=== PATIENT | female | born 1940 | race Caucasian/White ===

== ENCOUNTER 2016-07-25 14:29 | Inpatient (IN) | payer MEDICARE, OTHER ==
[~2016-07-25] VITALS: Ht 160 cm; Wt 70.9 kg
[~2016-07-25 14:29] MED LIST: ALBU8HFA4 IH; AMIO200T44 PO; APIX5TAB PO; ASPI81 PO; CARV6 PO; CHOL200016 PO; DIPH25 PO; SIMV-261 PO; SITA25 PO
[2016-07-25] MEDS ORDERED: [UNRECOGNIZED DRUG - OTHER] PO (14:56)
[2016-07-25] MEDS ORDERED: DOCU250C91 PO (14:56)
[2016-07-25 15:20] LABS: GLUCOSE,POINT OF CARE 293 MG/DL (70-110)
[2016-07-25] MEDS ORDERED: IPRATROPIUM BROMIDE 0.5 MG/2.5 ML NEB SOLUTION NEB ONE (16:30)
[2016-07-25] MEDS ORDERED: ALBUTEROL SULFATE 5 MG/ML 20 ML NEB SOLN [BULK] NEB ONE (16:30)
[2016-07-25 16:33] LABS: BASOPHILS % (AUTO) 0.5 % (0.0-2.0); EOSINOPHILS % (AUTO) 0.6 % (1.0-6.0); HEMATOCRIT 35.7 % (36-46); HEMOGLOBIN 11.2 g/dL (12.0-16.0); LYMPHOCYTES # (AUTO) 1.2 K/uL (1.0-4.8); MEAN CORPUSCULAR HEMOGLOBIN 28.8 pg (26.0-34.0); MEAN CORPUSCULAR HGB CONC 31.5 G/dL (31.0-37.0); MEAN CORPUSCULAR VOLUME 92 fL (80-100); MONOCYTES # (AUTO) 0.9 K/uL (0.1-1.0); MONOCYTES % (AUTO) 10.5 % (2.0-9.0); NEUTROPHILS # (AUTO) 6.8 K/uL (1.8-7.7); NEUTROPHILS % (AUTO) 75.4 % (40.0-70.0); PLATELET COUNT (AUTO) 174 K/uL (150-450); RED BLOOD CELL COUNT(AUTO) 3.89 MIL/uL (4.00-5.20); RED CELL DISTRIBUTION WIDTH 17.5 % (11.5-14.5)
[2016-07-25 16:42] LABS: ANION GAP 7 mmol/L (8-16); CALCIUM, TOTAL 8.5 mg/dL (8.8-10.5); CARBON DIOXIDE 32 mmol/L (22-29); CHLORIDE 93 mmol/L (98-107); CREATININE 5.25 mg/dL (0.60-1.30); GLOMERULAR FILTR. RATE CALC 8 mL/min (>60); POTASSIUM 4.4 mmol/L (3.5-5.1); SODIUM SERUM 132 mmol/L (136-145); UREA NITROGEN, BLOOD 34 mg/dL (7-18)
[2016-07-25 16:44] LABS: INR 1.2 (0.9-1.1); PROTHROMBIN TIME 12.3 SEC (9.4-11.6)
[2016-07-25 16:49] LABS: ALANINE AMINOTRANSFERASE 20 U/L (12-78); ALBUMIN 2.9 g/dL (3.4-5.0); ASPARTATE AMINOTRANSFERASE 13 U/L (15-37); BILIRUBIN,TOTAL 0.4 mg/dL (0.1-1.0); CREATINE KINASE, TOTAL 19 U/L (26-192); TOTAL PROTEIN, SERUM 7.3 g/dL (6.4-8.2)
[2016-07-25 17:54] LABS: RBC MORPHOLOGY COMMENT ABNORMAL RBC MORPH
[2016-07-25] MEDS ORDERED: 0.9% SODIUM CHLORIDE 10 ML SYRINGE IVP PRN (18:00)
[2016-07-25] MEDS ORDERED: ACETAMINOPHEN 325 MG TABLET PO PRN ×2 (18:00→20:45)
[2016-07-25] MEDS ORDERED: ONDANSETRON HCL 4 MG/2 ML VIAL IVP PRN (18:00)
[2016-07-25 18:05] LABS: INFLUENZA TYPE B NEGATIVE FOR TYPE B (NEGATIVE)
[2016-07-25 18:41] LABS: ERYTHROCYTE SEDIMENTATION RATE 20 MM/HR (0-20)
[2016-07-25] MEDS ORDERED: ALBUTEROL SULFATE 2.5 MG/0.5 ML NEB SOLUTION NEB PRN (20:45)
[2016-07-25] MEDS ORDERED: BISACODYL 10 MG RECTAL RECTAL SUPPOSITORY PR PRN (20:45)
[2016-07-25] MEDS ORDERED: DEXTROSE 50%-WATER 25 GM/50 ML SYRINGE IVP PRN (20:45)
[2016-07-25 21:30] VITALS: BP 133/63
[2016-07-25] MEDS: DOCUSATE SODIUM 100 MG CAPSULE PO SCH (22:12)
[2016-07-25] MEDS: AMIODARONE HCL 200 MG TABLET PO SCH (22:12)
[2016-07-25] MEDS: CARVEDILOL 6.25 MG TABLET PO SCH (22:12)
[2016-07-25] MEDS: SIMVASTATIN 20 MG TABLET PO SCH (22:12)
[2016-07-25] MEDS: HEPARIN SODIUM,PORCINE 5,000 UNITS/ML VIAL SQ SCH (22:12)
[2016-07-25 22:25] LABS: ABG BASE EXCESS 4.1 mmol/L (-2.0-3.0); ABG HCO3 26.7 mmol/L (22.0-26.0); ABG OXYHEMOGLOBIN 77.7 % (94.0-100.0); ABG PCO2 57 mmHg (35-45); ABG PH 7.336 (7.35-7.450); TEMPERATURE, FAHRENHEIT, BG 98.6 FAHREN (96.0-98.6)
[2016-07-25] MEDS: INSULIN ASPART 100 UNITS/ML SQ PRN (22:25)
[2016-07-25 22:26] LABS: ALLEN TEST, BLOOD GAS Positive
[2016-07-25 23:22] VITALS: BP 125/49
[2016-07-26] MEDS ORDERED: 0.9% SODIUM CHLORIDE 5 ML NEB SOLUTION NEB ONE (02:25)
[2016-07-26 04:16] VITALS: BP 145/60
[2016-07-26] MEDS: INSULIN ASPART 100 UNITS/ML SQ PRN (06:03)
[2016-07-26 07:04] VITALS: BP 157/69
[2016-07-26 07:12] LABS: GLUCOSE,POINT OF CARE 187 MG/DL (70-110)
[2016-07-26 07:12] LABS: GLUCOSE COMMENT 1 Received Meds; GLUCOSE,POINT OF CARE 317 MG/DL (70-110)
[2016-07-26] MEDS ORDERED: SitaGLIPtin PHOSPHATE 50 MG TABLET PO SCH (10:15)
[2016-07-26] MEDS ORDERED: MANNITOL 25%-12.5 GM/50 ML VIAL IVP PRN (11:00)
[2016-07-26] MEDS ORDERED: ALBUMIN HUMAN 25%-12.5GM/50ML IV BOTTLE IV PRN (11:00)
[2016-07-26 11:29] VITALS: BP 162/73
[2016-07-26] MEDS: VITAMIN B COMP/VIT C/FOLIC ACID CAPSULE PO SCH (13:03)
[2016-07-26] MEDS: SitaGLIPtin PHOSPHATE 25 MG TABLET PO SCH (13:03)
[2016-07-26] MEDS: ASPIRIN 81 MG CHEWABLE TABLET PO SCH (13:03)
[2016-07-26] MEDS: CARVEDILOL 6.25 MG TABLET PO SCH ×2 (13:03→20:44)
[2016-07-26] MEDS: DOCUSATE SODIUM 100 MG CAPSULE PO SCH ×2 (13:04→20:44)
[2016-07-26] MEDS: PANTOPRAZOLE SODIUM 40 MG DR TABLET PO SCH (13:04)
[2016-07-26] MEDS: AMIODARONE HCL 200 MG TABLET PO SCH ×2 (13:04→20:44)
[2016-07-26] MEDS: HEPARIN SODIUM,PORCINE 5,000 UNITS/ML VIAL SQ SCH ×2 (13:04→20:45)
[2016-07-26] MEDS ORDERED: DIGOXIN 250 MCG/ML 2 ML AMP IVP ONE ×2 (13:30→15:45)
[2016-07-26 15:15] VITALS: BP 120/88
[2016-07-26] MEDS ORDERED: AMIODARONE HCL 150 MG in DEXTROSE 5%-WATER 97 ML IV ONE (18:50)
[2016-07-26] MEDS ORDERED: AMIODARONE HCL 360 MG in DEXTROSE 5%-WATER 242.8 ML IV ONE (19:00)
[2016-07-26 19:05] VITALS: BP 111/63
[2016-07-26] MEDS: SIMVASTATIN 20 MG TABLET PO SCH (20:44)
[2016-07-26 21:00] VITALS: BP 117/60
[2016-07-27] VITALS (7 sets, daily range): BP systolic 129–168; BP diastolic 47–66
[2016-07-27] MEDS ORDERED: AMIODARONE HCL 540 MG in DEXTROSE 5%-WATER 239.2 ML IV ONE (01:00)
[2016-07-27 06:46] LABS: EOSINOPHILS % (AUTO) 0.1 % (1.0-6.0); HEMATOCRIT 36.5 % (36-46); HEMOGLOBIN 11.1 g/dL (12.0-16.0); LYMPHOCYTES # (AUTO) 0.8 K/uL (1.0-4.8); LYMPHOCYTES % (AUTO) 8.5 % (22.0-44.0); MEAN CORPUSCULAR HEMOGLOBIN 28.5 pg (26.0-34.0); MEAN CORPUSCULAR HGB CONC 30.5 G/dL (31.0-37.0); MEAN CORPUSCULAR VOLUME 94 fL (80-100); MONOCYTES # (AUTO) 1.2 K/uL (0.1-1.0); MONOCYTES % (AUTO) 12.5 % (2.0-9.0); NEUTROPHILS # (AUTO) 7.7 K/uL (1.8-7.7); NEUTROPHILS % (AUTO) 78.9 % (40.0-70.0); PLATELET COUNT (AUTO) 174 K/uL (150-450); RED CELL DISTRIBUTION WIDTH 17.2 % (11.5-14.5); WHITE BLOOD COUNT (AUTO) 9.8 K/uL (4.5-11.0)
[2016-07-27 06:53] LABS: CALCIUM, TOTAL 8.6 mg/dL (8.8-10.5); CREATININE 4.55 mg/dL (0.60-1.30); POTASSIUM 5.1 mmol/L (3.5-5.1)
[2016-07-27 07:04] LABS: RBC MORPHOLOGY COMMENT ABNORMAL RBC MORPH
[2016-07-27] MEDS: CARVEDILOL 6.25 MG TABLET PO SCH ×2 (08:49→20:55)
[2016-07-27] MEDS: PANTOPRAZOLE SODIUM 40 MG DR TABLET PO SCH (08:49)
[2016-07-27] MEDS: DOCUSATE SODIUM 100 MG CAPSULE PO SCH ×2 (08:49→20:55)
[2016-07-27] MEDS: ASPIRIN 81 MG CHEWABLE TABLET PO SCH (08:49)
[2016-07-27] MEDS: SitaGLIPtin PHOSPHATE 25 MG TABLET PO SCH (08:49)
[2016-07-27] MEDS: VITAMIN B COMP/VIT C/FOLIC ACID CAPSULE PO SCH (08:49)
[2016-07-27] MEDS: AMIODARONE HCL 200 MG TABLET PO SCH ×2 (08:50→20:55)
[2016-07-27] MEDS: HEPARIN SODIUM,PORCINE 5,000 UNITS/ML VIAL SQ SCH ×2 (08:50→20:55)
[2016-07-27 11:48] LABS: TOTAL PROTEIN, SERUM 7.2 g/dL (6.4-8.2)
[2016-07-27] MEDS ORDERED: AMIODARONE HCL 750 MG in DEXTROSE 5%-WATER 485 ML IV SCH (19:00)
[2016-07-27] MEDS ORDERED: CARV12 PO (19:16)
[2016-07-27] MEDS ORDERED: SITA50 PO (19:16)
[2016-07-27] MEDS: SIMVASTATIN 20 MG TABLET PO SCH (20:55)
[2016-07-28 04:19] VITALS: BP 145/85
[2016-07-28] MEDS ORDERED: SODIUM CHLORIDE 0.9% 1,000 ML IV ONE ×2 (06:42→06:43)
[2016-07-28] MEDS ORDERED: MANNITOL 25%-12.5 GM/50 ML VIAL IVP PRN (07:00)
[2016-07-28] MEDS ORDERED: ALBUMIN HUMAN 25%-12.5GM/50ML IV BOTTLE IV PRN (07:00)
[2016-07-28 07:08] LABS: CALCIUM, TOTAL 8.7 mg/dL (8.8-10.5); CREATININE 5.95 mg/dL (0.60-1.30); MAGNESIUM 2.1 mg/dL (1.80-2.40); PHOSPHORUS 3.9 mg/dL (2.5-4.9); POTASSIUM 4.9 mmol/L (3.5-5.1)
[2016-07-28 07:41] VITALS: BP 158/63
[2016-07-28 08:10] LABS: BASOPHILS # (AUTO) 0.02 K/uL (0.00-0.20); BASOPHILS % (AUTO) 0.3 % (0.0-2.0); EOSINOPHILS # (AUTO) 0.04 K/uL (0.00-0.70); EOSINOPHILS % (AUTO) 0.54 % (1.0-6.0); HEMATOCRIT 37.1 % (36-46); HEMOGLOBIN 11.5 g/dL (12.0-16.0); LYMPHOCYTES # (AUTO) 0.9 K/uL (1.0-4.8); LYMPHOCYTES % (AUTO) 13.7 % (22.0-44.0); MEAN CORPUSCULAR HEMOGLOBIN 28.3 pg (26.0-34.0); MEAN CORPUSCULAR HGB CONC 30.9 G/dL (31.0-37.0); MEAN CORPUSCULAR VOLUME 91 fL (80-100); MONOCYTES # (AUTO) 0.6 K/uL (0.1-1.0); MONOCYTES % (AUTO) 8.2 % (2.0-9.0); NEUTROPHILS # (AUTO) 5.1 K/uL (1.8-7.7); NEUTROPHILS % (AUTO) 77.3 % (40.0-70.0); PLATELET COUNT (AUTO) 155 K/uL (150-450); RED BLOOD CELL COUNT(AUTO) 4.06 MIL/uL (4.00-5.20); RED CELL DISTRIBUTION WIDTH 17.2 % (11.5-14.5); WHITE BLOOD COUNT (AUTO) 6.6 K/uL (4.5-11.0)
[2016-07-28] MEDS ORDERED: DEXTROSE 50%-WATER 25 GM/50 ML SYRINGE IVP PRN (08:30)
[2016-07-28] MEDS: SitaGLIPtin PHOSPHATE 25 MG TABLET PO SCH ×2 (09:00→13:12)
[2016-07-28] MEDS: HEPARIN SODIUM,PORCINE 5,000 UNITS/ML VIAL SQ SCH ×3 (09:00→20:44)
[2016-07-28] MEDS: PANTOPRAZOLE SODIUM 40 MG DR TABLET PO SCH ×2 (09:00→13:14)
[2016-07-28] MEDS: VITAMIN B COMP/VIT C/FOLIC ACID CAPSULE PO SCH ×2 (09:00→13:12)
[2016-07-28] MEDS: AMIODARONE HCL 200 MG TABLET PO SCH ×3 (09:00→20:44)
[2016-07-28] MEDS: CARVEDILOL 6.25 MG TABLET PO SCH ×3 (09:00→20:43)
[2016-07-28] MEDS: INSULIN DETEMIR 100 UNITS/ML SQ SCH ×2 (09:00→20:51)
[2016-07-28] MEDS: DOCUSATE SODIUM 100 MG CAPSULE PO SCH ×2 (09:00→13:09)
[2016-07-28] MEDS: ASPIRIN 81 MG CHEWABLE TABLET PO SCH ×2 (09:00→13:14)
[2016-07-28] MEDS: SIMVASTATIN 20 MG TABLET PO SCH (13:14)
[2016-07-28 14:55] VITALS: BP 141/56
[2016-07-28] MEDS: INSULIN ASPART 100 UNITS/ML SQ PRN ×2 (15:43→17:50)
[2016-07-28 16:57] LABS: APPEARANCE,UNSPUN,BODY FLUID CLOUDY (CLEAR); COLOR,BODY FLUID RED (LT YELLOW)
[2016-07-28 17:00] LABS: OTHER CELLS,BODY FLUID 2
[2016-07-28 17:57] LABS: GLUCOSE,POINT OF CARE 190 MG/DL (70-110)
[2016-07-28 18:02] LABS: GLUCOSE,POINT OF CARE 254 MG/DL (70-110)
[2016-07-28 20:37] VITALS: BP 131/60
[2016-07-28 20:57] LABS: GLUCOSE,POINT OF CARE 334 MG/DL (70-110)
[2016-07-29 00:19] VITALS: BP 127/59
[2016-07-29 04:47] VITALS: BP 148/57
[2016-07-29 06:43] LABS: CALCIUM, TOTAL 8.5 mg/dL (8.8-10.5); CREATININE 4.47 mg/dL (0.60-1.30); POTASSIUM 4.1 mmol/L (3.5-5.1)
[2016-07-29 06:45] LABS: BASOPHILS # (AUTO) 0.01 K/uL (0.00-0.20); BASOPHILS % (AUTO) 0.3 % (0.0-2.0); EOSINOPHILS # (AUTO) 0.05 K/uL (0.00-0.70); EOSINOPHILS % (AUTO) 0.88 % (1.0-6.0); HEMATOCRIT 35.4 % (36-46); LYMPHOCYTES # (AUTO) 0.9 K/uL (1.0-4.8); LYMPHOCYTES % (AUTO) 16.5 % (22.0-44.0); MEAN CORPUSCULAR HEMOGLOBIN 28.6 pg (26.0-34.0); MEAN CORPUSCULAR HGB CONC 31.2 G/dL (31.0-37.0); MEAN CORPUSCULAR VOLUME 92 fL (80-100); MONOCYTES # (AUTO) 0.4 K/uL (0.1-1.0); MONOCYTES % (AUTO) 7.1 % (2.0-9.0); NEUTROPHILS # (AUTO) 4.2 K/uL (1.8-7.7); NEUTROPHILS % (AUTO) 75.2 % (40.0-70.0); PLATELET COUNT (AUTO) 167 K/uL (150-450); RED BLOOD CELL COUNT(AUTO) 3.86 MIL/uL (4.00-5.20); RED CELL DISTRIBUTION WIDTH 17.3 % (11.5-14.5); WHITE BLOOD COUNT (AUTO) 5.6 K/uL (4.5-11.0)
[2016-07-29 07:15] VITALS: BP 126/59
[2016-07-29] MEDS: SitaGLIPtin PHOSPHATE 25 MG TABLET PO SCH (08:20)
[2016-07-29] MEDS: ASPIRIN 81 MG CHEWABLE TABLET PO SCH (08:20)
[2016-07-29] MEDS: VITAMIN B COMP/VIT C/FOLIC ACID CAPSULE PO SCH (08:20)
[2016-07-29] MEDS: PANTOPRAZOLE SODIUM 40 MG DR TABLET PO SCH (08:20)
[2016-07-29] MEDS: DOCUSATE SODIUM 100 MG CAPSULE PO SCH ×2 (08:20→20:57)
[2016-07-29] MEDS: AMIODARONE HCL 200 MG TABLET PO SCH ×2 (08:20→20:57)
[2016-07-29] MEDS: CARVEDILOL 6.25 MG TABLET PO SCH ×2 (08:20→20:57)
[2016-07-29] MEDS: HEPARIN SODIUM,PORCINE 5,000 UNITS/ML VIAL SQ SCH ×2 (08:21→20:58)
[2016-07-29] MEDS: INSULIN DETEMIR 100 UNITS/ML SQ SCH ×2 (08:22→20:21)
[2016-07-29 11:09] VITALS: BP 124/64
[2016-07-29 12:02] LABS: GLUCOSE,POINT OF CARE 306 MG/DL (70-110)
[2016-07-29 12:07] LABS: GLUCOSE COMMENT 1 Received Meds; GLUCOSE,POINT OF CARE 385 MG/DL (70-110)
[2016-07-29] MEDS: INSULIN ASPART 100 UNITS/ML SQ PRN ×3 (12:07→20:22)
[2016-07-29 15:43] VITALS: BP 122/43
[2016-07-29 17:56] LABS: GLUCOSE,POINT OF CARE 202 MG/DL (70-110)
[2016-07-29 19:30] VITALS: BP 143/50
[2016-07-29 20:52] LABS: GLUCOSE COMMENT 1 Received Meds; GLUCOSE,POINT OF CARE 246 MG/DL (70-110)
[2016-07-29] MEDS: SIMVASTATIN 20 MG TABLET PO SCH (20:57)
[2016-07-30 00:31] VITALS: BP 145/79
[2016-07-30 04:49] VITALS: BP 133/81
[2016-07-30] MEDS: INSULIN ASPART 100 UNITS/ML SQ PRN ×2 (05:47→12:03)
[2016-07-30 07:40] VITALS: BP 155/42
[2016-07-30] MEDS: SitaGLIPtin PHOSPHATE 25 MG TABLET PO SCH (08:21)
[2016-07-30] MEDS: VITAMIN B COMP/VIT C/FOLIC ACID CAPSULE PO SCH (08:22)
[2016-07-30] MEDS: HEPARIN SODIUM,PORCINE 5,000 UNITS/ML VIAL SQ SCH (08:22)
[2016-07-30] MEDS: CARVEDILOL 6.25 MG TABLET PO SCH (08:22)
[2016-07-30] MEDS: PANTOPRAZOLE SODIUM 40 MG DR TABLET PO SCH (08:22)
[2016-07-30] MEDS: AMIODARONE HCL 200 MG TABLET PO SCH (08:22)
[2016-07-30] MEDS: DOCUSATE SODIUM 100 MG CAPSULE PO SCH (08:22)
[2016-07-30] MEDS: ASPIRIN 81 MG CHEWABLE TABLET PO SCH (08:22)
[2016-07-30] MEDS: INSULIN DETEMIR 100 UNITS/ML SQ SCH (08:23)
[2016-07-30 11:16] VITALS: BP 164/49
[2016-07-30] MEDS ORDERED: SITA25 PO (13:19)
[2016-07-30] MEDS ORDERED: ASPI81 PO (13:19)
[2016-07-30] MEDS ORDERED: INSLAN SQ (13:20)
[2016-07-30] MEDS ORDERED: FOLI1CAP2 PO (13:20)
[2016-07-30 15:26] LABS: GLUCOSE COMMENT 1 Received Meds; GLUCOSE,POINT OF CARE 356 MG/DL (70-110)
[2016-07-30 15:35] VITALS: BP 160/69
[2016-07-31 16:10] LABS: GLUCOSE, BODY FLUID,REF 241 mg/dL; LDH,BODY FLUID,REF 182 IU/L
[2016-07-31 20:46] LABS: GLUCOSE COMMENT 1 Received Meds; GLUCOSE,POINT OF CARE 258 MG/DL (70-110)
[2016-08-14] MEDS ORDERED: SIMV-260 PO (06:21)
== END 2016-07-30 16:30 | disposition home or self-care (01) | DRG 291 ==
LOC: EMS 14:31 → 5S 17:55
PROVIDERS: ADMIT Internal Medicine; ATTEND Internal Medicine
PROC: 5A1D60Z (ICD-10-PCS; principal; 2016-07-26)
PROC: 0W9B3ZZ Drainage of Left Pleural Cavity, Percutaneous Approach (ICD-10-PCS; 2016-07-28)
DX: I13.2 Hypertensive heart and chronic kidney disease with heart failure and with stage 5 chronic kidney disease, or end stage renal disease (principal); J96.01 Acute respiratory failure with hypoxia; E43 Unspecified severe protein-calorie malnutrition; N18.6 End stage renal disease; J90 Pleural effusion, not elsewhere classified; Z83.3 Family history of diabetes mellitus; E11.22 Type 2 diabetes mellitus with diabetic chronic kidney disease; I25.10 Atherosclerotic heart disease of native coronary artery without angina pectoris; D63.1 Anemia in chronic kidney disease; E11.21 Type 2 diabetes mellitus with diabetic nephropathy; E11.319 Type 2 diabetes mellitus with unspecified diabetic retinopathy without macular edema; E78.5 Hyperlipidemia, unspecified; H54.0 Blindness, both eyes; I48.0 Paroxysmal atrial fibrillation; I50.9 Heart failure, unspecified; J45.909 Unspecified asthma, uncomplicated; F32.9 Major depressive disorder, single episode, unspecified; K57.90 Diverticulosis of intestine, part unspecified, without perforation or abscess without bleeding; Z99.2 Dependence on renal dialysis; Z88.5 Allergy status to narcotic agent; Z88.8 Allergy status to other drugs, medicaments and biological substances; Z91.013 Allergy to seafood; Z79.82 Long term (current) use of aspirin; Z79.899 Other long term (current) drug therapy; Z90.49 Acquired absence of other specified parts of digestive tract; Z68.27 Body mass index [BMI] 27.0-27.9, adult; Z98.890 Other specified postprocedural states; Z82.49 Family history of ischemic heart disease and other diseases of the circulatory system
CPT/HCPCS: 32555; 71250; 76942; 82465; 82805; 82945; 82962; 83605; 83615; 83735; 83986; 84100; 84155; 84157; 85651; 87015; 87040; 87070; 87081; 87101; 87205; 87804; 88108; 89051; 90935; 93005; 93306; 94640; 94644; 97110; 97116; 97161; 97530; 99285; J0282; J1160; J1644; J7030; J7060

== ENCOUNTER 2016-08-13 18:21 | Inpatient (IN) | payer MEDICARE, OTHER ==
[~2016-08-13] VITALS: Ht 160 cm; Wt 70.5 kg
[~2016-08-13 18:21] MED LIST changes: -ALBU8HFA4 IH; -APIX5TAB PO; +CARV12 PO; -CARV6 PO; -CHOL200016 PO; -DIPH25 PO; +FOLI1CAP2 PO; +INSLAN SQ; -SIMV-261 PO; +SIMV40 PO
[2016-08-13 19:41] LABS: BASOPHILS # (AUTO) 0.02 K/uL (0.00-0.20); BASOPHILS % (AUTO) 0.2 % (0.0-2.0); EOSINOPHILS % (AUTO) 1.41 % (1.0-6.0); HEMATOCRIT 34.3 % (36-46); HEMOGLOBIN 11.1 g/dL (12.0-16.0); LYMPHOCYTES # (AUTO) 1.6 K/uL (1.0-4.8); LYMPHOCYTES % (AUTO) 21.8 % (22.0-44.0); MEAN CORPUSCULAR HEMOGLOBIN 29.2 pg (26.0-34.0); MEAN CORPUSCULAR HGB CONC 32.4 G/dL (31.0-37.0); MEAN CORPUSCULAR VOLUME 90 fL (80-100); MONOCYTES # (AUTO) 0.4 K/uL (0.1-1.0); MONOCYTES % (AUTO) 5.6 % (2.0-9.0); PLATELET COUNT (AUTO) 162 K/uL (150-450); RED BLOOD CELL COUNT(AUTO) 3.81 MIL/uL (4.00-5.20); RED CELL DISTRIBUTION WIDTH 17.8 % (11.5-14.5); WHITE BLOOD COUNT (AUTO) 7.1 K/uL (4.5-11.0)
[2016-08-13 19:51] LABS: ANION GAP 16 mmol/L (8-16); CALCIUM, TOTAL 8.7 mg/dL (8.8-10.5); CARBON DIOXIDE 21 mmol/L (22-29); CHLORIDE 100 mmol/L (98-107); CREATININE 6.07 mg/dL (0.60-1.30); GLOMERULAR FILTR. RATE CALC 7 mL/min (>60); POTASSIUM 5.2 mmol/L (3.5-5.1); SODIUM SERUM 137 mmol/L (136-145); UREA NITROGEN, BLOOD 50 mg/dL (7-18)
[2016-08-13 19:57] LABS: ALANINE AMINOTRANSFERASE 11 U/L (12-78); ALBUMIN 2.9 g/dL (3.4-5.0); ASPARTATE AMINOTRANSFERASE 14 U/L (15-37); BILIRUBIN,TOTAL 0.3 mg/dL (0.1-1.0); TOTAL PROTEIN, SERUM 7.1 g/dL (6.4-8.2)
[2016-08-13 20:02] LABS: GLUCOSE COMMENT 1 Doctor Notified; GLUCOSE,POINT OF CARE 88 MG/DL (70-110)
[2016-08-13 20:48] LABS: CREATINE KINASE, TOTAL 27 U/L (26-192)
[2016-08-13 20:58] LABS: INR 1.1 (0.9-1.1); PROTHROMBIN TIME 11.4 SEC (9.4-11.6)
[2016-08-13 22:14] LABS: APPEARANCE,URINE CLOUDY (CLEAR); GLUCOSE, URINE (UA) 250 mg/dL (NEGATIVE); KETONES,URINE NEGATIVE (NEGATIVE); LEUKOCYTE ESTERASE ,URINE MODERATE (NEGATIVE); OCCULT BLOOD,URINE LARGE (NEGATIVE); PROTEIN,URINE SEE CONFIRM (NEGATIVE)
[2016-08-13 22:55] LABS: SULFOSALICYLIC ACID,URINE 4+ (Negative)
[2016-08-13 22:57] LABS: RBC,URINE 51-100 /HPF (0-2); WBC,URINE 26-50 /HPF (0-5)
[2016-08-13 22:58] LABS: SQUAMOUS EPITHELIAL CELL,UR Moderate /LPF (None Seen)
[2016-08-13 22:59] LABS: COARSE GRANULAR CASTS,URINE 0-2 /LPF (None Seen)
[2016-08-13] MEDS ORDERED: SODIUM POLYSTYRENE SULFONATE 15 GM/60 ML SUSPENSION BOTTLE PO ONE (23:45)
[2016-08-13] MEDS ORDERED: CefTRIAXone 1 GM/DEXTROSE 50 ML IV ONE (23:45)
[2016-08-14] MEDS ORDERED: ZOLPIDEM TARTRATE 5 MG TABLET PO PRN (01:00)
[2016-08-14] MEDS ORDERED: BISACODYL 10 MG RECTAL RECTAL SUPPOSITORY PR PRN (01:00)
[2016-08-14] MEDS ORDERED: IPRATROPIUM BROMIDE 0.5 MG/2.5 ML NEB SOLUTION NEB PRN (01:00)
[2016-08-14] MEDS ORDERED: MAGNESIUM HYDROXIDE SUSPENSION 30 ML UDCUP PO PRN (01:00)
[2016-08-14] MEDS ORDERED: ALBUTEROL SULFATE 2.5 MG/0.5 ML NEB SOLUTION NEB PRN (01:00)
[2016-08-14] MEDS ORDERED: DEXTROSE 50%-WATER 25 GM/50 ML SYRINGE IVP PRN (01:00)
[2016-08-14] MEDS ORDERED: SIMV20 PO (06:21)
[2016-08-14] MEDS: ONDANSETRON HCL 4 MG/2 ML VIAL IVP PRN (06:59)
[2016-08-14 07:51] LABS: GLUCOSE,POINT OF CARE 98 MG/DL (70-110)
[2016-08-14 08:43] LABS: HEMATOCRIT 34.3 % (36-46); HEMOGLOBIN 10.8 g/dL (12.0-16.0); MEAN CORPUSCULAR HEMOGLOBIN 28.5 pg (26.0-34.0); MEAN CORPUSCULAR HGB CONC 31.4 G/dL (31.0-37.0); MEAN CORPUSCULAR VOLUME 91 fL (80-100); PLATELET COUNT (AUTO) 167 K/uL (150-450); RED BLOOD CELL COUNT(AUTO) 3.79 MIL/uL (4.00-5.20); RED CELL DISTRIBUTION WIDTH 17.7 % (11.5-14.5); WHITE BLOOD COUNT (AUTO) 8.4 K/uL (4.5-11.0)
[2016-08-14 08:51] LABS: CALCIUM, TOTAL 8.6 mg/dL (8.8-10.5); CREATININE 6.93 mg/dL (0.60-1.30); POTASSIUM 5.5 mmol/L (3.5-5.1)
[2016-08-14 08:55] LABS: BILIRUBIN,TOTAL 0.3 mg/dL (0.1-1.0); TOTAL PROTEIN, SERUM 7.5 g/dL (6.4-8.2)
[2016-08-14] MEDS: CARVEDILOL 12.5 MG TABLET PO SCH ×2 (09:00→21:00)
[2016-08-14] MEDS: ASPIRIN 81 MG CHEWABLE TABLET PO SCH (10:26)
[2016-08-14] MEDS: FERROUS SULFATE 325 MG EC TABLET PO SCH ×2 (10:26→19:40)
[2016-08-14] MEDS: VITAMIN B COMP/VIT C/FOLIC ACID CAPSULE PO SCH (10:26)
[2016-08-14] MEDS: HEPARIN SODIUM,PORCINE 5,000 UNITS/ML VIAL SQ SCH ×2 (10:26→21:43)
[2016-08-14] MEDS: PANTOPRAZOLE SODIUM 40 MG DR TABLET PO SCH (10:26)
[2016-08-14] MEDS: AMIODARONE HCL 200 MG TABLET PO SCH ×2 (10:26→21:43)
[2016-08-14 10:39] VITALS: BP 126/67
[2016-08-14 10:59] LABS: TOTAL CELLS COUNTED 100
[2016-08-14 11:01] LABS: BAND NEUTROPHILS % (MANUAL) 4 % (1-5); LYMPHOCYTES % (MANUAL) 15 % (22-44); RBC MORPHOLOGY COMMENT ABNORMAL RBC MORPH
[2016-08-14 11:07] LABS: GLUCOSE,POINT OF CARE 132 MG/DL (70-110)
[2016-08-14] MEDS ORDERED: MANNITOL 25%-12.5 GM/50 ML VIAL IVP ONE (12:00)
[2016-08-14] MEDS ORDERED: LIDOCAINE HCL/PF 1% 2 ML VIAL INJ ONE (12:00)
[2016-08-14 13:16] VITALS: BP 121/57
[2016-08-14] MEDS ORDERED: ALBUMIN HUMAN 25%-12.5GM/50ML IV BOTTLE IV PRN (15:45)
[2016-08-14] MEDS ORDERED: MANNITOL 25%-12.5 GM/50 ML VIAL IVP PRN (15:45)
[2016-08-14 17:31] LABS: GLUCOSE,POINT OF CARE 125 MG/DL (70-110)
[2016-08-14 19:40] VITALS: BP 119/43
[2016-08-14] MEDS: SIMVASTATIN 20 MG TABLET PO SCH (21:43)
[2016-08-14 22:49] VITALS: BP 117/37
[2016-08-14 23:29] VITALS: BP 118/32
[2016-08-15] MEDS: CefTRIAXone 1 GM/DEXTROSE 50 ML IV SCH ×2 (00:15→23:11)
[2016-08-15] MEDS ORDERED: SODIUM CHLORIDE 0.9% 100 ML ONE (00:22)
[2016-08-15 02:42] LABS: GLUCOSE COMMENT 1 Received Meds; GLUCOSE,POINT OF CARE 148 MG/DL (70-110)
[2016-08-15 04:36] VITALS: BP 106/39
[2016-08-15] MEDS: INSULIN ASPART 100 UNITS/ML SQ PRN ×4 (05:55→21:10)
[2016-08-15 06:41] VITALS: BP 111/51
[2016-08-15 06:51] LABS: BASOPHILS % (AUTO) 0.2 % (0.0-2.0); EOSINOPHILS % (AUTO) 0 % (1.0-6.0); HEMATOCRIT 33.6 % (36-46); HEMOGLOBIN 10.4 g/dL (12.0-16.0); LYMPHOCYTES # (AUTO) 1.4 K/uL (1.0-4.8); LYMPHOCYTES % (AUTO) 19.4 % (22.0-44.0); MEAN CORPUSCULAR HEMOGLOBIN 28.2 pg (26.0-34.0); MEAN CORPUSCULAR HGB CONC 30.9 G/dL (31.0-37.0); MEAN CORPUSCULAR VOLUME 91 fL (80-100); MONOCYTES # (AUTO) 0.4 K/uL (0.1-1.0); MONOCYTES % (AUTO) 5.6 % (2.0-9.0); NEUTROPHILS # (AUTO) 5.5 K/uL (1.8-7.7); NEUTROPHILS % (AUTO) 74.8 % (40.0-70.0); PLATELET COUNT (AUTO) 159 K/uL (150-450); RED BLOOD CELL COUNT(AUTO) 3.68 MIL/uL (4.00-5.20); RED CELL DISTRIBUTION WIDTH 18.4 % (11.5-14.5); WHITE BLOOD COUNT (AUTO) 7.3 K/uL (4.5-11.0)
[2016-08-15 07:17] LABS: RBC MORPHOLOGY COMMENT ABNORMAL RBC MORPH
[2016-08-15 07:31] LABS: ALBUMIN 2.7 g/dL (3.4-5.0); BILIRUBIN,TOTAL 0.3 mg/dL (0.1-1.0); CALCIUM, TOTAL 7.8 mg/dL (8.8-10.5); CHOL/HDL RATIO 2.6 (3.9-5.7); CREATININE 5.15 mg/dL (0.60-1.30); PHOSPHORUS 6.1 mg/dL (2.5-4.9); POTASSIUM 4.2 mmol/L (3.5-5.1); THYROID STIMULATING HORMONE 1.01 uIU/mL (0.36-3.74); TOTAL PROTEIN, SERUM 6.5 g/dL (6.4-8.2)
[2016-08-15 07:46] VITALS: BP 131/52
[2016-08-15 08:36] LABS: HEMOGLOBIN A1C 8.6 % (4.5-6.2)
[2016-08-15] MEDS: PANTOPRAZOLE SODIUM 40 MG DR TABLET PO SCH (08:50)
[2016-08-15] MEDS: VITAMIN B COMP/VIT C/FOLIC ACID CAPSULE PO SCH (08:50)
[2016-08-15] MEDS: AMIODARONE HCL 200 MG TABLET PO SCH ×2 (08:50→21:00)
[2016-08-15] MEDS: ASPIRIN 81 MG CHEWABLE TABLET PO SCH (08:50)
[2016-08-15] MEDS: FERROUS SULFATE 325 MG EC TABLET PO SCH (08:51)
[2016-08-15] MEDS: HEPARIN SODIUM,PORCINE 5,000 UNITS/ML VIAL SQ SCH ×2 (08:51→20:58)
[2016-08-15] MEDS: EPOETIN ALFA 10,000 UNITS/ML 2 ML VIAL SQ SCH (08:51)
[2016-08-15] MEDS: CARVEDILOL 12.5 MG TABLET PO SCH ×2 (08:52→21:00)
[2016-08-15 11:33] VITALS: BP 144/57
[2016-08-15] MEDS ORDERED: BISACODYL 10 MG RECTAL RECTAL SUPPOSITORY PR PRN (13:30)
[2016-08-15] MEDS ORDERED: MAGNESIUM HYDROXIDE SUSPENSION 30 ML UDCUP PO PRN (13:30)
[2016-08-15 15:12] VITALS: BP 135/57
[2016-08-15 19:50] VITALS: BP 129/53
[2016-08-15] MEDS: ONDANSETRON HCL 4 MG/2 ML VIAL IVP PRN (20:16)
[2016-08-15] MEDS: SIMVASTATIN 20 MG TABLET PO SCH (21:00)
[2016-08-16 00:01] VITALS: BP 105/44
[2016-08-16 07:27] LABS: GLUCOSE COMMENT 1 Received Meds; GLUCOSE,POINT OF CARE 161 MG/DL (70-110)
[2016-08-16 07:37] LABS: CALCIUM, TOTAL 7.6 mg/dL (8.8-10.5); CREATININE 5.6 mg/dL (0.60-1.30); MAGNESIUM 1.8 mg/dL (1.80-2.40); PHOSPHORUS 4.8 mg/dL (2.5-4.9); POTASSIUM 3.8 mmol/L (3.5-5.1)
[2016-08-16 07:40] VITALS: BP 121/50
[2016-08-16] MEDS: ASPIRIN 81 MG CHEWABLE TABLET PO SCH (08:51)
[2016-08-16] MEDS: HEPARIN SODIUM,PORCINE 5,000 UNITS/ML VIAL SQ SCH (08:51)
[2016-08-16] MEDS: AMIODARONE HCL 200 MG TABLET PO SCH ×2 (08:51→20:48)
[2016-08-16] MEDS: PANTOPRAZOLE SODIUM 40 MG DR TABLET PO SCH (08:52)
[2016-08-16] MEDS: VITAMIN B COMP/VIT C/FOLIC ACID CAPSULE PO SCH (08:52)
[2016-08-16] MEDS: CARVEDILOL 12.5 MG TABLET PO SCH ×2 (08:52→20:46)
[2016-08-16 11:26] VITALS: BP 128/74
[2016-08-16 15:48] VITALS: BP 124/48
[2016-08-16] MEDS: ONDANSETRON HCL 4 MG/2 ML VIAL IVP PRN (16:07)
[2016-08-16] MEDS: INSULIN ASPART 100 UNITS/ML SQ PRN ×2 (17:48→20:53)
[2016-08-16 20:29] VITALS: BP 143/52
[2016-08-16] MEDS: SIMVASTATIN 20 MG TABLET PO SCH (20:46)
[2016-08-16] MEDS: CefTRIAXone 1 GM/DEXTROSE 50 ML IV SCH (23:43)
[2016-08-17] MEDS ORDERED: PROPOFOL 1% 20 ML VIAL IVP ONE (00:06)
[2016-08-17 00:25] VITALS: BP 121/49
[2016-08-17 05:26] VITALS: BP 141/55
[2016-08-17 06:16] LABS: ALBUMIN 2.6 g/dL (3.4-5.0); BILIRUBIN,TOTAL 0.2 mg/dL (0.1-1.0); CALCIUM, TOTAL 7.5 mg/dL (8.8-10.5); CREATININE 4.44 mg/dL (0.60-1.30); TOTAL PROTEIN, SERUM 6.2 g/dL (6.4-8.2)
[2016-08-17 06:39] LABS: BASOPHILS % (AUTO) 0.2 % (0.0-2.0); EOSINOPHILS % (AUTO) 0.3 % (1.0-6.0); HEMATOCRIT 34.2 % (36-46); HEMOGLOBIN 10.5 g/dL (12.0-16.0); LYMPHOCYTES # (AUTO) 1.3 K/uL (1.0-4.8); LYMPHOCYTES % (AUTO) 29.3 % (22.0-44.0); MEAN CORPUSCULAR HEMOGLOBIN 27.9 pg (26.0-34.0); MEAN CORPUSCULAR HGB CONC 30.7 G/dL (31.0-37.0); MEAN CORPUSCULAR VOLUME 91 fL (80-100); MONOCYTES # (AUTO) 0.4 K/uL (0.1-1.0); MONOCYTES % (AUTO) 9.1 % (2.0-9.0); NEUTROPHILS # (AUTO) 2.8 K/uL (1.8-7.7); NEUTROPHILS % (AUTO) 61.1 % (40.0-70.0); PLATELET COUNT (AUTO) 99 K/uL (150-450); RED BLOOD CELL COUNT(AUTO) 3.75 MIL/uL (4.00-5.20); WHITE BLOOD COUNT (AUTO) 4.5 K/uL (4.5-11.0)
[2016-08-17 06:50] LABS: RBC MORPHOLOGY COMMENT ABNORMAL RBC MORPH
[2016-08-17 07:24] LABS: POTASSIUM 3.9 mmol/L (3.5-5.1)
[2016-08-17 07:26] LABS: GLUCOSE COMMENT 1 Received Meds; GLUCOSE,POINT OF CARE 284 MG/DL (70-110)
[2016-08-17 07:46] VITALS: BP 146/63
[2016-08-17 08:07] LABS: GLUCOSE COMMENT 1 FASTING; GLUCOSE,POINT OF CARE 226 MG/DL (70-110)
[2016-08-17] MEDS: EPOETIN ALFA 10,000 UNITS/ML 2 ML VIAL SQ SCH (08:42)
[2016-08-17] MEDS ORDERED: SODIUM CHLORIDE 0.9% 1,000 ML IV ONE ×2 (10:00→10:10)
[2016-08-17] MEDS: ASPIRIN 81 MG CHEWABLE TABLET PO SCH (13:38)
[2016-08-17] MEDS: ONDANSETRON HCL 4 MG/2 ML VIAL IVP PRN (13:38)
[2016-08-17] MEDS: AMIODARONE HCL 200 MG TABLET PO SCH ×2 (13:38→20:37)
[2016-08-17] MEDS: VITAMIN B COMP/VIT C/FOLIC ACID CAPSULE PO SCH (13:39)
[2016-08-17] MEDS: PANTOPRAZOLE SODIUM 40 MG DR TABLET PO SCH (13:39)
[2016-08-17] MEDS: CARVEDILOL 12.5 MG TABLET PO SCH ×2 (13:39→20:36)
[2016-08-17 13:40] VITALS: BP 133/96
[2016-08-17] MEDS: INSULIN ASPART 100 UNITS/ML SQ PRN ×2 (13:46→20:42)
[2016-08-17 15:50] VITALS: BP 142/58
[2016-08-17 19:22] VITALS: BP 150/54
[2016-08-17 19:47] LABS: GLUCOSE,POINT OF CARE 259 MG/DL (70-110)
[2016-08-17 19:47] LABS: GLUCOSE COMMENT 1 Received Meds; GLUCOSE,POINT OF CARE 228 MG/DL (70-110)
[2016-08-17 19:51] LABS: GLUCOSE COMMENT 1 Received Meds; GLUCOSE,POINT OF CARE 199 MG/DL (70-110)
[2016-08-17] MEDS: SIMVASTATIN 20 MG TABLET PO SCH (20:36)
[2016-08-17] MEDS: CefTRIAXone 1 GM/DEXTROSE 50 ML IV SCH (23:54)
[2016-08-18] VITALS: BP 108/57
[2016-08-18] MEDS: INSULIN ASPART 100 UNITS/ML SQ PRN ×4 (06:13→20:03)
[2016-08-18 06:24] VITALS: BP 147/59
[2016-08-18 06:31] LABS: BASOPHILS % (AUTO) 0.7 % (0.0-2.0); HEMATOCRIT 31.9 % (36-46); LYMPHOCYTES % (AUTO) 26.6 % (22.0-44.0); MEAN CORPUSCULAR HEMOGLOBIN 28.5 pg (26.0-34.0); MEAN CORPUSCULAR HGB CONC 31.4 G/dL (31.0-37.0); MEAN CORPUSCULAR VOLUME 91 fL (80-100); MONOCYTES # (AUTO) 0.1 K/uL (0.1-1.0); MONOCYTES % (AUTO) 3.2 % (2.0-9.0); NEUTROPHILS # (AUTO) 2.4 K/uL (1.8-7.7); NEUTROPHILS % (AUTO) 68.5 % (40.0-70.0); PLATELET COUNT (AUTO) 84 K/uL (150-450); RED BLOOD CELL COUNT(AUTO) 3.52 MIL/uL (4.00-5.20); RED CELL DISTRIBUTION WIDTH 18.4 % (11.5-14.5); WHITE BLOOD COUNT (AUTO) 3.6 K/uL (4.5-11.0)
[2016-08-18 07:00] LABS: ALBUMIN 2.5 g/dL (3.4-5.0); BILIRUBIN,TOTAL 0.2 mg/dL (0.1-1.0); CALCIUM, TOTAL 7.6 mg/dL (8.8-10.5); CREATININE 4.48 mg/dL (0.60-1.30); MAGNESIUM 1.7 mg/dL (1.80-2.40); PHOSPHORUS 2.8 mg/dL (2.5-4.9); POTASSIUM 3.6 mmol/L (3.5-5.1); TOTAL PROTEIN, SERUM 6.1 g/dL (6.4-8.2)
[2016-08-18 07:35] LABS: RBC MORPHOLOGY COMMENT ABNORMAL RBC MORPH
[2016-08-18] MEDS: CARVEDILOL 12.5 MG TABLET PO SCH ×2 (09:21→19:56)
[2016-08-18] MEDS: AMIODARONE HCL 200 MG TABLET PO SCH ×2 (09:21→19:56)
[2016-08-18] MEDS: ASPIRIN 81 MG CHEWABLE TABLET PO SCH (09:21)
[2016-08-18] MEDS: VITAMIN B COMP/VIT C/FOLIC ACID CAPSULE PO SCH (09:21)
[2016-08-18] MEDS: PANTOPRAZOLE SODIUM 40 MG DR TABLET PO SCH (09:21)
[2016-08-18 11:05] VITALS: BP 164/63
[2016-08-18 15:42] VITALS: BP 147/51
[2016-08-18 17:41] LABS: GLUCOSE COMMENT 1 Received Meds; GLUCOSE,POINT OF CARE 285 MG/DL (70-110)
[2016-08-18 19:45] VITALS: BP 103/78
[2016-08-18] MEDS: SIMVASTATIN 20 MG TABLET PO SCH (19:56)
[2016-08-18] MEDS: CefTRIAXone 1 GM/DEXTROSE 50 ML IV SCH (22:42)
[2016-08-19 00:12] VITALS: BP 140/60
[2016-08-19 03:59] VITALS: BP 140/75
[2016-08-19] MEDS: INSULIN ASPART 100 UNITS/ML SQ PRN ×4 (06:16→21:36)
[2016-08-19 06:54] LABS: BASOPHILS % (AUTO) 0.2 % (0.0-2.0); HEMATOCRIT 35.1 % (36-46); LYMPHOCYTES # (AUTO) 1.2 K/uL (1.0-4.8); LYMPHOCYTES % (AUTO) 19.4 % (22.0-44.0); MEAN CORPUSCULAR HEMOGLOBIN 28.4 pg (26.0-34.0); MEAN CORPUSCULAR HGB CONC 31.2 G/dL (31.0-37.0); MEAN CORPUSCULAR VOLUME 91 fL (80-100); MONOCYTES # (AUTO) 0.4 K/uL (0.1-1.0); MONOCYTES % (AUTO) 6.9 % (2.0-9.0); NEUTROPHILS # (AUTO) 4.4 K/uL (1.8-7.7); NEUTROPHILS % (AUTO) 72.5 % (40.0-70.0); PLATELET COUNT (AUTO) 92 K/uL (150-450); RED BLOOD CELL COUNT(AUTO) 3.86 MIL/uL (4.00-5.20); RED CELL DISTRIBUTION WIDTH 17.6 % (11.5-14.5); WHITE BLOOD COUNT (AUTO) 6.1 K/uL (4.5-11.0)
[2016-08-19 07:26] LABS: ALBUMIN 2.7 g/dL (3.4-5.0); BILIRUBIN,TOTAL 0.3 mg/dL (0.1-1.0); CALCIUM, TOTAL 7.7 mg/dL (8.8-10.5); CREATININE 4.19 mg/dL (0.60-1.30); POTASSIUM 3.4 mmol/L (3.5-5.1); TOTAL PROTEIN, SERUM 6.5 g/dL (6.4-8.2)
[2016-08-19] MEDS: VITAMIN B COMP/VIT C/FOLIC ACID CAPSULE PO SCH (08:17)
[2016-08-19] MEDS: AMIODARONE HCL 200 MG TABLET PO SCH ×2 (08:17→20:20)
[2016-08-19] MEDS: PANTOPRAZOLE SODIUM 40 MG DR TABLET PO SCH (08:17)
[2016-08-19] MEDS: CARVEDILOL 12.5 MG TABLET PO SCH ×2 (08:17→20:20)
[2016-08-19] MEDS: ASPIRIN 81 MG CHEWABLE TABLET PO SCH (08:18)
[2016-08-19 08:19] VITALS: BP 153/62
[2016-08-19] MEDS: ACETAMINOPHEN 325 MG TABLET PO PRN (09:43)
[2016-08-19] MEDS ORDERED: POTASSIUM CHLORIDE 20 MEQ ER TABLET PO ONE (09:45)
[2016-08-19] MEDS: MethylPREDNISolone SOD SUCC 125 MG/2 ML VIAL IVP SCH ×3 (14:20→23:02)
[2016-08-19] MEDS ORDERED: POLYETHYLENE GLYCOL 3350 17 GM PACKET PO PRN (14:30)
[2016-08-19 15:32] VITALS: BP 139/68
[2016-08-19] MEDS: ALBUTEROL SULFATE 2.5 MG/0.5 ML NEB SOLUTION NEB SCH ×2 (19:00→22:47)
[2016-08-19] MEDS: IPRATROPIUM BROMIDE 0.5 MG/2.5 ML NEB SOLUTION NEB SCH ×2 (19:00→22:47)
[2016-08-19 20:00] VITALS: BP 158/58
[2016-08-19] MEDS: SIMVASTATIN 20 MG TABLET PO SCH (20:20)
[2016-08-19] MEDS: CefTRIAXone 1 GM/DEXTROSE 50 ML IV SCH (23:02)
[2016-08-20] VITALS (7 sets, daily range): BP systolic 139–182; BP diastolic 49–76
[2016-08-20] MEDS: IPRATROPIUM BROMIDE 0.5 MG/2.5 ML NEB SOLUTION NEB SCH ×6 (02:58→23:00)
[2016-08-20] MEDS: ALBUTEROL SULFATE 2.5 MG/0.5 ML NEB SOLUTION NEB SCH ×6 (02:58→23:00)
[2016-08-20] MEDS: MethylPREDNISolone SOD SUCC 125 MG/2 ML VIAL IVP SCH ×2 (05:46→12:55)
[2016-08-20 06:45] LABS: EOSINOPHILS % (AUTO) 0 % (1.0-6.0); HEMATOCRIT 33.5 % (36-46); HEMOGLOBIN 10.5 g/dL (12.0-16.0); LYMPHOCYTES # (AUTO) 0.6 K/uL (1.0-4.8); LYMPHOCYTES % (AUTO) 11.6 % (22.0-44.0); MEAN CORPUSCULAR HEMOGLOBIN 28.3 pg (26.0-34.0); MEAN CORPUSCULAR HGB CONC 31.3 G/dL (31.0-37.0); MEAN CORPUSCULAR VOLUME 91 fL (80-100); MONOCYTES % (AUTO) 0.2 % (2.0-9.0); NEUTROPHILS # (AUTO) 4.8 K/uL (1.8-7.7); PLATELET COUNT (AUTO) 87 K/uL (150-450); RED CELL DISTRIBUTION WIDTH 18.2 % (11.5-14.5); WHITE BLOOD COUNT (AUTO) 5.4 K/uL (4.5-11.0)
[2016-08-20 07:00] LABS: ALBUMIN 2.4 g/dL (3.4-5.0); BILIRUBIN,TOTAL 0.3 mg/dL (0.1-1.0); CALCIUM, TOTAL 7.4 mg/dL (8.8-10.5); CREATININE 5.41 mg/dL (0.60-1.30); POTASSIUM 4.6 mmol/L (3.5-5.1); TOTAL PROTEIN, SERUM 6.3 g/dL (6.4-8.2)
[2016-08-20 07:19] LABS: NEUTROPHILS % (AUTO) 88.2 % (40.0-70.0); RBC MORPHOLOGY COMMENT ABNORMAL RBC MORPH
[2016-08-20 08:57] LABS: INR 1.1 (0.9-1.1)
[2016-08-20] MEDS: PANTOPRAZOLE SODIUM 40 MG DR TABLET PO SCH (09:20)
[2016-08-20] MEDS: CARVEDILOL 12.5 MG TABLET PO SCH ×2 (09:20→20:15)
[2016-08-20] MEDS: ASPIRIN 81 MG CHEWABLE TABLET PO SCH (12:56)
[2016-08-20] MEDS: AMIODARONE HCL 200 MG TABLET PO SCH ×2 (12:56→20:15)
[2016-08-20] MEDS: VITAMIN B COMP/VIT C/FOLIC ACID CAPSULE PO SCH (12:56)
[2016-08-20] MEDS: INSULIN ASPART 100 UNITS/ML SQ PRN ×3 (12:58→21:10)
[2016-08-20 13:49] LABS: APPEARANCE,UNSPUN,BODY FLUID HAZY (CLEAR); COLOR,BODY FLUID YELLOW (LT YELLOW)
[2016-08-20 17:06] LABS: GLUCOSE COMMENT 1 Received Meds; GLUCOSE,POINT OF CARE 204 MG/DL (70-110)
[2016-08-20 17:37] LABS: GLUCOSE COMMENT 1 Received Meds; GLUCOSE,POINT OF CARE 258 MG/DL (70-110)
[2016-08-20 17:37] LABS: GLUCOSE,POINT OF CARE 193 MG/DL (70-110)
[2016-08-20] MEDS: MethylPREDNISolone SOD SUCC 40 MG/ML VIAL IVP SCH ×2 (18:41→23:09)
[2016-08-20] MEDS: EPOETIN ALFA 10,000 UNITS/ML 2 ML VIAL SQ SCH (18:42)
[2016-08-20] MEDS: SIMVASTATIN 20 MG TABLET PO SCH (20:15)
[2016-08-20] MEDS ORDERED: DIPH25CA85 PO (21:26)
[2016-08-20] MEDS: CefTRIAXone 1 GM/DEXTROSE 50 ML IV SCH (23:01)
[2016-08-21] MEDS: ALBUTEROL SULFATE 2.5 MG/0.5 ML NEB SOLUTION NEB SCH ×6 (03:00→23:08)
[2016-08-21] MEDS: IPRATROPIUM BROMIDE 0.5 MG/2.5 ML NEB SOLUTION NEB SCH ×6 (03:00→23:08)
[2016-08-21 03:59] VITALS: BP 137/56
[2016-08-21 05:32] LABS: GLUCOSE COMMENT 1 Received Meds; GLUCOSE,POINT OF CARE 283 MG/DL (70-110)
[2016-08-21] MEDS: MethylPREDNISolone SOD SUCC 40 MG/ML VIAL IVP SCH (05:34)
[2016-08-21] MEDS: INSULIN ASPART 100 UNITS/ML SQ PRN ×4 (06:19→21:09)
[2016-08-21 07:27] LABS: EOSINOPHILS % (AUTO) 0 % (1.0-6.0); HEMATOCRIT 34.5 % (36-46); HEMOGLOBIN 10.7 g/dL (12.0-16.0); LYMPHOCYTES # (AUTO) 0.6 K/uL (1.0-4.8); LYMPHOCYTES % (AUTO) 6.2 % (22.0-44.0); MEAN CORPUSCULAR HEMOGLOBIN 28.2 pg (26.0-34.0); MEAN CORPUSCULAR HGB CONC 31.1 G/dL (31.0-37.0); MEAN CORPUSCULAR VOLUME 91 fL (80-100); MONOCYTES # (AUTO) 0.1 K/uL (0.1-1.0); MONOCYTES % (AUTO) 1.1 % (2.0-9.0); NEUTROPHILS # (AUTO) 9.1 K/uL (1.8-7.7); PLATELET COUNT (AUTO) 100 K/uL (150-450); RED CELL DISTRIBUTION WIDTH 18.4 % (11.5-14.5); WHITE BLOOD COUNT (AUTO) 9.9 K/uL (4.5-11.0)
[2016-08-21 07:30] VITALS: BP 136/56
[2016-08-21 07:35] LABS: NEUTROPHILS % (AUTO) 92.7 % (40.0-70.0)
[2016-08-21 07:48] LABS: ALBUMIN 2.5 g/dL (3.4-5.0); BILIRUBIN,TOTAL 0.3 mg/dL (0.1-1.0); CALCIUM, TOTAL 7.6 mg/dL (8.8-10.5); CREATININE 6.76 mg/dL (0.60-1.30); MAGNESIUM 1.8 mg/dL (1.80-2.40); PHOSPHORUS 4.3 mg/dL (2.5-4.9); POTASSIUM 4.8 mmol/L (3.5-5.1); TOTAL PROTEIN, SERUM 6.4 g/dL (6.4-8.2)
[2016-08-21 08:33] LABS: RBC MORPHOLOGY COMMENT ABNORMAL RBC MORPH
[2016-08-21 11:44] VITALS: BP 158/72
[2016-08-21] MEDS: VITAMIN B COMP/VIT C/FOLIC ACID CAPSULE PO SCH (12:44)
[2016-08-21] MEDS: PredniSONE 20 MG TABLET PO SCH (12:45)
[2016-08-21] MEDS: CARVEDILOL 12.5 MG TABLET PO SCH ×2 (12:46→20:17)
[2016-08-21] MEDS: PANTOPRAZOLE SODIUM 40 MG DR TABLET PO SCH (12:46)
[2016-08-21] MEDS: ASPIRIN 81 MG CHEWABLE TABLET PO SCH (12:47)
[2016-08-21] MEDS: AMIODARONE HCL 200 MG TABLET PO SCH ×2 (12:47→20:17)
[2016-08-21 15:02] LABS: GLUCOSE COMMENT 1 Received Meds; GLUCOSE,POINT OF CARE 194 MG/DL (70-110)
[2016-08-21 15:07] VITALS: BP 151/55
[2016-08-21 15:23] LABS: GLUCOSE COMMENT 1 Received Meds; GLUCOSE,POINT OF CARE 235 MG/DL (70-110)
[2016-08-21 15:23] LABS: GLUCOSE COMMENT 1 Received Meds; GLUCOSE,POINT OF CARE 211 MG/DL (70-110)
[2016-08-21 15:23] LABS: GLUCOSE COMMENT 1 Received Meds; GLUCOSE,POINT OF CARE 282 MG/DL (70-110)
[2016-08-21 15:36] LABS: GLUCOSE,POINT OF CARE 265 MG/DL (70-110)
[2016-08-21 15:37] LABS: GLUCOSE COMMENT 1 Received Meds; GLUCOSE,POINT OF CARE 284 MG/DL (70-110)
[2016-08-21 16:58] LABS: TOTAL PROTEIN,BODY FLUID,REF 2.7 g/dL
[2016-08-21 18:11] LABS: GLUCOSE,POINT OF CARE 366 MG/DL (70-110)
[2016-08-21 19:39] VITALS: BP 151/57
[2016-08-21] MEDS: SIMVASTATIN 20 MG TABLET PO SCH (20:17)
[2016-08-21] MEDS ORDERED: SODIUM CHLORIDE 0.9% 100 ML ONE (22:12)
[2016-08-21] MEDS: CefTRIAXone 1 GM/DEXTROSE 50 ML IV SCH (22:29)
[2016-08-21 23:51] VITALS: BP 116/49
[2016-08-22] MEDS: IPRATROPIUM BROMIDE 0.5 MG/2.5 ML NEB SOLUTION NEB SCH ×6 (03:02→23:35)
[2016-08-22] MEDS: ALBUTEROL SULFATE 2.5 MG/0.5 ML NEB SOLUTION NEB SCH ×6 (03:02→23:35)
[2016-08-22 05:37] VITALS: BP 154/57
[2016-08-22] MEDS: INSULIN ASPART 100 UNITS/ML SQ PRN ×3 (06:17→18:09)
[2016-08-22 06:53] LABS: BASOPHILS % (AUTO) 0.6 % (0.0-2.0); EOSINOPHILS % (AUTO) 0 % (1.0-6.0); HEMATOCRIT 36.4 % (36-46); HEMOGLOBIN 11.3 g/dL (12.0-16.0); LYMPHOCYTES # (AUTO) 0.6 K/uL (1.0-4.8); LYMPHOCYTES % (AUTO) 3.9 % (22.0-44.0); MEAN CORPUSCULAR VOLUME 90 fL (80-100); MONOCYTES # (AUTO) 0.5 K/uL (0.1-1.0); MONOCYTES % (AUTO) 2.9 % (2.0-9.0); NEUTROPHILS # (AUTO) 14.9 K/uL (1.8-7.7); PLATELET COUNT (AUTO) 88 K/uL (150-450); RED BLOOD CELL COUNT(AUTO) 4.02 MIL/uL (4.00-5.20); RED CELL DISTRIBUTION WIDTH 18.2 % (11.5-14.5)
[2016-08-22 07:16] LABS: NEUTROPHILS % (AUTO) 92.6 % (40.0-70.0); WHITE BLOOD COUNT (AUTO) 17.5 K/uL (4.5-11.0)
[2016-08-22 07:17] LABS: RBC MORPHOLOGY COMMENT ABNORMAL RBC MORPH
[2016-08-22 07:25] LABS: ALBUMIN 2.4 g/dL (3.4-5.0); BILIRUBIN,TOTAL 0.3 mg/dL (0.1-1.0); CALCIUM, TOTAL 7.8 mg/dL (8.8-10.5); CREATININE 5.12 mg/dL (0.60-1.30); POTASSIUM 5.3 mmol/L (3.5-5.1); TOTAL PROTEIN, SERUM 5.8 g/dL (6.4-8.2)
[2016-08-22 07:44] VITALS: BP 156/64
[2016-08-22 08:41] LABS: GLUCOSE COMMENT 1 Received Meds; GLUCOSE,POINT OF CARE 280 MG/DL (70-110)
[2016-08-22] MEDS: AMIODARONE HCL 200 MG TABLET PO SCH ×2 (10:30→21:19)
[2016-08-22] MEDS: CARVEDILOL 12.5 MG TABLET PO SCH ×2 (10:31→21:19)
[2016-08-22] MEDS: PredniSONE 20 MG TABLET PO SCH (10:31)
[2016-08-22] MEDS: PANTOPRAZOLE SODIUM 40 MG DR TABLET PO SCH (10:31)
[2016-08-22] MEDS: ASPIRIN 81 MG CHEWABLE TABLET PO SCH (10:31)
[2016-08-22] MEDS: VITAMIN B COMP/VIT C/FOLIC ACID CAPSULE PO SCH (10:31)
[2016-08-22] MEDS: EPOETIN ALFA 10,000 UNITS/ML 2 ML VIAL SQ SCH (10:33)
[2016-08-22 11:24] VITALS: BP 134/62
[2016-08-22 15:46] LABS: GLUCOSE COMMENT 1 Received Meds; GLUCOSE,POINT OF CARE 254 MG/DL (70-110)
[2016-08-22 17:48] VITALS: BP 156/61
[2016-08-22 20:21] VITALS: BP 137/52
[2016-08-22] MEDS: SIMVASTATIN 20 MG TABLET PO SCH (21:19)
[2016-08-22] MEDS: CefTRIAXone 1 GM/DEXTROSE 50 ML IV SCH (23:02)
[2016-08-23] VITALS (11 sets, daily range): BP systolic 128–178; BP diastolic 51–122
[2016-08-23] MEDS: ALBUTEROL SULFATE 2.5 MG/0.5 ML NEB SOLUTION NEB SCH ×6 (02:54→22:39)
[2016-08-23] MEDS: IPRATROPIUM BROMIDE 0.5 MG/2.5 ML NEB SOLUTION NEB SCH ×6 (02:54→22:39)
[2016-08-23 05:43] LABS: GLUCOSE COMMENT 1 Received Meds; GLUCOSE,POINT OF CARE 336 MG/DL (70-110)
[2016-08-23 06:04] LABS: BASOPHILS # (AUTO) 0.02 K/uL (0.00-0.20); BASOPHILS % (AUTO) 0.2 % (0.0-2.0); EOSINOPHILS % (AUTO) 0.02 % (1.0-6.0); HEMATOCRIT 40.7 % (36-46); HEMOGLOBIN 12.9 g/dL (12.0-16.0); LYMPHOCYTES # (AUTO) 0.7 K/uL (1.0-4.8); LYMPHOCYTES % (AUTO) 4.4 % (22.0-44.0); MEAN CORPUSCULAR HEMOGLOBIN 28.6 pg (26.0-34.0); MEAN CORPUSCULAR HGB CONC 31.8 G/dL (31.0-37.0); MEAN CORPUSCULAR VOLUME 90 fL (80-100); MONOCYTES # (AUTO) 0.6 K/uL (0.1-1.0); MONOCYTES % (AUTO) 3.5 % (2.0-9.0); NEUTROPHILS # (AUTO) 14.2 K/uL (1.8-7.7); PLATELET COUNT (AUTO) 126 K/uL (150-450); RED BLOOD CELL COUNT(AUTO) 4.52 MIL/uL (4.00-5.20); RED CELL DISTRIBUTION WIDTH 18.7 % (11.5-14.5); WHITE BLOOD COUNT (AUTO) 15.5 K/uL (4.5-11.0)
[2016-08-23 06:16] LABS: NEUTROPHILS % (AUTO) 91.9 % (40.0-70.0)
[2016-08-23 06:19] LABS: CALCIUM, TOTAL 7.8 mg/dL (8.8-10.5); CREATININE 6.2 mg/dL (0.60-1.30); MAGNESIUM 1.7 mg/dL (1.80-2.40); PHOSPHORUS 2.5 mg/dL (2.5-4.9); POTASSIUM 4.5 mmol/L (3.5-5.1)
[2016-08-23] MEDS ORDERED: HEPARIN SODIUM 1000 UNITS/NS 500 ML ONE (08:44)
[2016-08-23] MEDS: CARVEDILOL 12.5 MG TABLET PO SCH ×2 (09:00→21:40)
[2016-08-23] MEDS ORDERED: TALC IPL ONE ×2 (09:00→11:45)
[2016-08-23] MEDS: ASPIRIN 81 MG CHEWABLE TABLET PO SCH (09:00)
[2016-08-23] MEDS: AMIODARONE HCL 200 MG TABLET PO SCH ×2 (09:00→21:40)
[2016-08-23] MEDS: VITAMIN B COMP/VIT C/FOLIC ACID CAPSULE PO SCH (09:00)
[2016-08-23] MEDS: PANTOPRAZOLE SODIUM 40 MG DR TABLET PO SCH (09:00)
[2016-08-23] MEDS ORDERED: [UNRECOGNIZED DRUG - OTHER] IPL ONE ×2 (09:00→11:45)
[2016-08-23] MEDS ORDERED: SODIUM CHLORIDE 0.9% 1,000 ML IV ONE ×2 (09:19→09:30)
[2016-08-23 10:43] LABS: ABG BASE EXCESS -2.7 mmol/L (-2.0-3.0); ABG HCO3 22.8 mmol/L (22.0-26.0); ABG OXYHEMOGLOBIN 95.1 % (94.0-100.0); ABG PCO2 34 mmHg (35-45); ABG PH 7.423 (7.35-7.450); TEMPERATURE, FAHRENHEIT, BG 100.8 FAHREN (96.0-98.6)
[2016-08-23] MEDS ORDERED: ONDANSETRON HCL 4 MG/2 ML VIAL IM ONE (11:45)
[2016-08-23] MEDS ORDERED: ONDANSETRON HCL 4 MG/2 ML VIAL ONE (11:49)
[2016-08-23] MEDS ORDERED: LIDOCAINE HCL/PF 2% 5 ML SYRINGE IVP ONE (12:00)
[2016-08-23] MEDS ORDERED: FentaNYL CITRATE-PF 100 MCG/2 ML VIAL IVP ONE (12:00)
[2016-08-23] MEDS ORDERED: GLYCOPYRROLATE 0.2 MG/ML VIAL IM ONE (12:00)
[2016-08-23] MEDS ORDERED: BUPIVACAINE HCL/PF 0.25% 30 ML VIAL ONE (12:00)
[2016-08-23] MEDS ORDERED: ROCURONIUM BROMIDE 10 MG/ML 5 ML VIAL IVP ONE (12:00)
[2016-08-23] MEDS ORDERED: NEOSTIGMINE METHYLSULFATE 1 MG/ML 10 ML VIAL IVP ONE (12:00)
[2016-08-23] MEDS ORDERED: ONDANSETRON HCL 4 MG/2 ML VIAL IVP ONE (12:00)
[2016-08-23] MEDS ORDERED: PROPOFOL 1% 20 ML VIAL IVP ONE (12:00)
[2016-08-23 12:27] LABS: GLUCOSE,POINT OF CARE 331 MG/DL (70-110)
[2016-08-23] MEDS ORDERED: FentaNYL CITRATE-PF 100 MCG/2 ML VIAL ONE (13:59)
[2016-08-23] MEDS ORDERED: PROMETHAZINE HCL 25 MG/ML VIAL ONE (14:04)
[2016-08-23] MEDS ORDERED: FentaNYL CITRATE-PF 100 MCG/2 ML VIAL IVP PRN (14:30)
[2016-08-23] MEDS ORDERED: MEPERIDINE-PF 25 MG/ML SYRINGE IVP PRN (14:30)
[2016-08-23] MEDS ORDERED: HYDROmorphone 2 MG/ML SYRINGE IVP PRN ×2 (14:30→21:30)
[2016-08-23 15:32] LABS: GLUCOSE,POINT OF CARE 320 MG/DL (70-110)
[2016-08-23] MEDS: INSULIN ASPART 100 UNITS/ML SQ PRN (17:19)
[2016-08-23 17:22] LABS: GLUCOSE,POINT OF CARE 308 MG/DL (70-110)
[2016-08-23] MEDS: ACETAMINOPHEN 325 MG TABLET PO PRN (20:33)
[2016-08-23] MEDS: OXYGEN THERAPY IH SCH (20:34)
[2016-08-23] MEDS ORDERED: MANNITOL 25%-12.5 GM/50 ML VIAL IVP PRN (20:45)
[2016-08-23] MEDS ORDERED: ACETAMINOPHEN 1000 MG/ISO-OSM 100 ML IV PRN (21:30)
[2016-08-23] MEDS: SIMVASTATIN 20 MG TABLET PO SCH (21:40)
[2016-08-23] MEDS ORDERED: SODIUM CHLORIDE 0.9% 250 ML IV ONE (21:49)
[2016-08-24] VITALS (7 sets, daily range): BP systolic 92–112; BP diastolic 38–68
[2016-08-24] MEDS: CefTRIAXone 1 GM/DEXTROSE 50 ML IV SCH ×2 (00:23→23:03)
[2016-08-24] MEDS: IPRATROPIUM BROMIDE 0.5 MG/2.5 ML NEB SOLUTION NEB SCH ×5 (03:14→18:49)
[2016-08-24] MEDS: ALBUTEROL SULFATE 2.5 MG/0.5 ML NEB SOLUTION NEB SCH ×5 (03:14→18:49)
[2016-08-24 06:52] LABS: GLUCOSE,POINT OF CARE 71 MG/DL (70-110)
[2016-08-24 06:52] LABS: GLUCOSE COMMENT 1 Juice/Food/D50 Given; GLUCOSE,POINT OF CARE 56 MG/DL (70-110)
[2016-08-24 06:57] LABS: GLUCOSE,POINT OF CARE 134 MG/DL (70-110)
[2016-08-24 06:57] LABS: CALCIUM, TOTAL 7.3 mg/dL (8.8-10.5); CREATININE 4.16 mg/dL (0.60-1.30)
[2016-08-24 07:09] LABS: HEMATOCRIT 40.8 % (36-46); HEMOGLOBIN 13.2 g/dL (12.0-16.0); MEAN CORPUSCULAR HEMOGLOBIN 28.9 pg (26.0-34.0); MEAN CORPUSCULAR HGB CONC 32.3 G/dL (31.0-37.0); MEAN CORPUSCULAR VOLUME 89 fL (80-100); RED BLOOD CELL COUNT(AUTO) 4.57 MIL/uL (4.00-5.20); RED CELL DISTRIBUTION WIDTH 19.2 % (11.5-14.5)
[2016-08-24 07:11] LABS: WHITE BLOOD COUNT (AUTO) 20.1 K/uL (4.5-11.0)
[2016-08-24] MEDS: VITAMIN B COMP/VIT C/FOLIC ACID CAPSULE PO SCH (08:10)
[2016-08-24] MEDS: ASPIRIN 81 MG CHEWABLE TABLET PO SCH (08:10)
[2016-08-24] MEDS: PANTOPRAZOLE SODIUM 40 MG DR TABLET PO SCH (08:10)
[2016-08-24] MEDS: AMIODARONE HCL 200 MG TABLET PO SCH ×2 (08:10→21:27)
[2016-08-24] MEDS: CARVEDILOL 12.5 MG TABLET PO SCH ×2 (08:10→21:27)
[2016-08-24] MEDS: OXYGEN THERAPY IH SCH ×2 (08:11→18:50)
[2016-08-24] MEDS: EPOETIN ALFA 10,000 UNITS/ML 2 ML VIAL SQ SCH (09:00)
[2016-08-24] MEDS ORDERED: LACTULOSE 20 GM/30 ML SOLUTION UDCUP PO ONE (09:15)
[2016-08-24 10:07] LABS: PLATELET COUNT (AUTO) 85 K/uL (150-450)
[2016-08-24 10:11] LABS: BAND NEUTROPHILS % (MANUAL) 20 % (1-5); LYMPHOCYTES % (MANUAL) 7 % (22-44); TOTAL CELLS COUNTED 100
[2016-08-24 10:12] LABS: RBC MORPHOLOGY COMMENT ABNORMAL R
[2016-08-24 11:37] LABS: GLUCOSE,POINT OF CARE 148 MG/DL (70-110)
[2016-08-24] MEDS ORDERED: SODIUM CHLORIDE 0.9% 500 ML IV ONE (13:52)
[2016-08-24] MEDS ORDERED: SODIUM CHLORIDE 0.9% 250 ML IV ONE (13:52)
[2016-08-24] MEDS: ACETAMINOPHEN 325 MG TABLET PO PRN (17:26)
[2016-08-24] MEDS: ONDANSETRON HCL 4 MG/2 ML VIAL IVP PRN (18:08)
[2016-08-24 20:37] LABS: GLUCOSE COMMENT 1 Received Meds; GLUCOSE,POINT OF CARE 174 MG/DL (70-110)
[2016-08-24] MEDS: SIMVASTATIN 20 MG TABLET PO SCH (21:27)
[2016-08-24] MEDS ORDERED: SODIUM CHLORIDE 0.9% 100 ML ONE (22:40)
[2016-08-25] VITALS (8 sets, daily range): BP systolic 65–116; BP diastolic 33–87
[2016-08-25] MEDS: IPRATROPIUM BROMIDE 0.5 MG/2.5 ML NEB SOLUTION NEB SCH ×4 (01:15→11:00)
[2016-08-25] MEDS: ALBUTEROL SULFATE 2.5 MG/0.5 ML NEB SOLUTION NEB SCH ×2 (01:15→04:02)
[2016-08-25 06:51] LABS: GLUCOSE COMMENT 1 Received Meds; GLUCOSE,POINT OF CARE 180 MG/DL (70-110)
[2016-08-25] MEDS ORDERED: SODIUM CHLORIDE 0.9% 250 ML IV ONE ×3 (07:26→12:15)
[2016-08-25] MEDS ORDERED: NOREPINEPHRINE 4 MG/D5%-WATER 250 ML IV PRN ×3 (07:30→11:19)
[2016-08-25] MEDS ORDERED: PHENYLEPHRINE 200 MG/D5%-WATER 250 ML IV PRN (08:29)
[2016-08-25] MEDS ORDERED: AMIODARONE HCL 200 MG TABLET PO SCH (09:00)
[2016-08-25] MEDS: ASPIRIN 81 MG CHEWABLE TABLET PO SCH (09:00)
[2016-08-25] MEDS: CARVEDILOL 12.5 MG TABLET PO SCH (09:00)
[2016-08-25] MEDS: VITAMIN B COMP/VIT C/FOLIC ACID CAPSULE PO SCH (09:00)
[2016-08-25] MEDS: PANTOPRAZOLE SODIUM 40 MG DR TABLET PO SCH (09:00)
[2016-08-25 10:33] LABS: CALCIUM, TOTAL 7.4 mg/dL (8.8-10.5); CREATININE 5.15 mg/dL (0.60-1.30); POTASSIUM 5.6 mmol/L (3.5-5.1)
[2016-08-25 10:40] LABS: ALBUMIN 1.4 g/dL (3.4-5.0); BILIRUBIN,TOTAL 0.4 mg/dL (0.1-1.0); TOTAL PROTEIN, SERUM 4.5 g/dL (6.4-8.2)
[2016-08-25] MEDS ORDERED: SODIUM CHLORIDE 0.9% 500 ML IV ONE (11:06)
[2016-08-25 11:10] LABS: ABG A-A DIFF O2 443.3 mmHg (10-20.0); ABG BASE EXCESS -12.9 mmol/L (-2.0-3.0); ABG HCO3 15.1 mmol/L (22.0-26.0); ABG OXYHEMOGLOBIN 97.5 % (94.0-100.0); ABG PCO2 41 mmHg (35-45); TEMPERATURE, FAHRENHEIT, BG 98.6 FAHREN (96.0-98.6)
[2016-08-25 11:11] LABS: ABG PH 7.191 (7.35-7.450); ALLEN TEST, BLOOD GAS Positive
[2016-08-25] MEDS ORDERED: SODIUM BICARBONATE [ADULT] 8.4% 50 MEQ/50 ML SYRINGE IVP ONE ×6 (11:30→17:41)
[2016-08-25 11:36] LABS: PHOSPHORUS 6.9 mg/dL (2.5-4.9)
[2016-08-25 11:43] LABS: HEMATOCRIT 47.4 % (36-46); HEMOGLOBIN 14.9 g/dL (12.0-16.0); MEAN CORPUSCULAR HEMOGLOBIN 28.5 pg (26.0-34.0); MEAN CORPUSCULAR HGB CONC 31.4 G/dL (31.0-37.0); MEAN CORPUSCULAR VOLUME 91 fL (80-100); PLATELET COUNT (AUTO) 42 K/uL (150-450); RED BLOOD CELL COUNT(AUTO) 5.23 MIL/uL (4.00-5.20); RED CELL DISTRIBUTION WIDTH 20.8 % (11.5-14.5)
[2016-08-25] MEDS ORDERED: VASOPRESSIN 100 UNITS in DEXTROSE 5%-WATER 245 ML IV PRN (11:45)
[2016-08-25 11:47] LABS: WHITE BLOOD COUNT (AUTO) 59.2 K/uL (4.5-11.0)
[2016-08-25 12:06] LABS: GLUCOSE COMMENT 1 Received Meds; GLUCOSE,POINT OF CARE 192 MG/DL (70-110)
[2016-08-25 12:31] LABS: CALCIUM, TOTAL 7.5 mg/dL (8.8-10.5); CREATININE 5.38 mg/dL (0.60-1.30); POTASSIUM 5.2 mmol/L (3.5-5.1)
[2016-08-25 12:34] LABS: PHOSPHORUS 6.7 mg/dL (2.5-4.9)
[2016-08-25 12:39] LABS: BAND NEUTROPHILS % (MANUAL) 30 % (1-5); LYMPHOCYTES % (MANUAL) 10 % (22-44); MYELOCYTES % 2 % (0-0); TOTAL CELLS COUNTED 100
[2016-08-25] MEDS ORDERED: 0.9% SODIUM CHLORIDE 10 ML SYRINGE IVP PRN (13:00)
[2016-08-25] MEDS ORDERED: DEXTROSE 5% IV PRN (13:00)
[2016-08-25] MEDS ORDERED: EPINEPHRINE IV PRN (13:00)
[2016-08-25] MEDS ORDERED: CALCIUM CHLORIDE IV PRN (13:00)
[2016-08-25] MEDS ORDERED: WATER IV PRN (13:00)
[2016-08-25 14:34] LABS: PARTIAL THROMBOPLASTIN TIME 54 SEC (25-35); PROTHROMBIN TIME 21.1 SEC (9.4-11.6)
[2016-08-25 14:54] LABS: ABG A-A DIFF O2 449.6 mmHg (10-20.0); ABG BASE EXCESS -22.8 mmol/L (-2.0-3.0); ABG OXYHEMOGLOBIN 92.7 % (94.0-100.0); ABG PCO2 27 mmHg (35-45); TEMPERATURE, FAHRENHEIT, BG 98.1 FAHREN (96.0-98.6)
[2016-08-25 14:55] LABS: ABG HCO3 9.7 mmol/L (22.0-26.0); ABG PH 7.064 (7.35-7.450); ALLEN TEST, BLOOD GAS Positive
[2016-08-25] MEDS ORDERED: SODIUM BICARBONATE 100 MEQ in DEXTROSE 5%-WATER 1,000 ML IV SCH (15:00)
[2016-08-25 15:11] LABS: LACTIC ACID 14.1 mmol/L (0.4-2.0)
[2016-08-25] MEDS ORDERED: PIPERACILLIN SODIUM/TAZOBACTAM 0.75 GM in DEXTROSE 5%-WATER 50 ML IV PRN (15:30)
[2016-08-25] MEDS ORDERED: VANCOMYCIN HCL 1 GM/D5% WATER 200 ML IV PRN (15:30)
[2016-08-25 15:35] LABS: FIBRINOGEN 517 mg/dL (200-400)
[2016-08-25 15:57] LABS: CREATINE KINASE MB 5.8 ng/mL (0-5); POTASSIUM 5.1 mmol/L (3.5-5.1)
[2016-08-25] MEDS ORDERED: PIPERACILLIN SODIUM/TAZOBACTAM 2.25 GM in DEXTROSE 5%-WATER 50 ML IV SCH (16:00)
[2016-08-25] MEDS ORDERED: VANCOMYCIN HCL 1.25 GM in DEXTROSE 5%-WATER 250 ML IV ONE (16:00)
[2016-08-25] MEDS ORDERED: ATROPINE SULFATE 0.1 MG/ML 10 ML SYRINGE IVP ONE (16:06)
[2016-08-25] MEDS ORDERED: VECURONIUM BROMIDE 10 MG/VIAL IVP ONE ×2 (16:06→19:45)
[2016-08-25] MEDS ORDERED: EPINEPHrine 1:10,000 [1 MG/10 ML] SYRINGE IVP ONE ×3 (16:06→17:41)
[2016-08-25] MEDS ORDERED: AMIODARONE HCL 50 MG/ML 3 ML VIAL IVP ONE (16:06)
[2016-08-25] MEDS ORDERED: ETOMIDATE 2 MG/ML 10 ML VIAL IVP ONE ×2 (16:06→19:45)
[2016-08-25 16:41] LABS: REFLEX LACTIC ACID? YES YES
[2016-08-25] MEDS ORDERED: DOPamine HCL/D5W 400 MG/250 ML IV BAG IV ONE (17:41)
[2016-08-25 19:27] LABS: GLUCOSE COMMENT 1 Received Meds; GLUCOSE,POINT OF CARE 207 MG/DL (70-110)
[2016-08-25 20:46] LABS: GLUCOSE COMMENT 1 Received Meds; GLUCOSE,POINT OF CARE 218 MG/DL (70-110)
[2016-08-25] MEDS ORDERED: SIMVASTATIN 10 MG TABLET PO SCH (21:00)
[2016-08-26] MEDS ORDERED: -POST HEMODIALYSIS NOTE- MISC SCH (09:00)
[2016-08-28 14:07] LABS: GLUCOSE COMMENT 1 Received Meds; GLUCOSE,POINT OF CARE 238 MG/DL (70-110)
== END 2016-08-25 16:07 | disposition expired | DRG 166 ==
LOC: EMS 18:30 → AHU 08-14 08:09 → 5S 08-14 19:10 → ICU 08-23 12:12 → 5S 08-24 14:52 → ICU 08-25 07:33
PROVIDERS: ADMIT Internal Medicine; ATTEND Internal Medicine
PROC: 5A1D60Z (ICD-10-PCS; 2016-08-14)
PROC: 0DB48ZX Excision of Esophagogastric Junction, Via Natural or Artificial Opening Endoscopic, Diagnostic (ICD-10-PCS; 2016-08-17)
PROC: 0DB68ZX Excision of Stomach, Via Natural or Artificial Opening Endoscopic, Diagnostic (ICD-10-PCS; 2016-08-17)
PROC: 0W9B3ZZ Drainage of Left Pleural Cavity, Percutaneous Approach (ICD-10-PCS; 2016-08-20)
PROC: 0W9B40Z Drainage of Left Pleural Cavity with Drainage Device, Percutaneous Endoscopic Approach (ICD-10-PCS; principal; 2016-08-22)
PROC: 0BBP4ZX Excision of Left Pleura, Percutaneous Endoscopic Approach, Diagnostic (ICD-10-PCS; 2016-08-22)
PROC: 3E0L3GC Introduction of Other Therapeutic Substance into Pleural Cavity, Percutaneous Approach (ICD-10-PCS; 2016-08-22)
PROC: 04HL33Z Insertion of Infusion Device into Left Femoral Artery, Percutaneous Approach (ICD-10-PCS; 2016-08-25)
PROC: 5A12012 Performance of Cardiac Output, Single, Manual (ICD-10-PCS; 2016-08-25)
PROC: 5A1935Z Respiratory Ventilation, Less than 24 Consecutive Hours (ICD-10-PCS; 2016-08-25)
PROC: 0BH17EZ Insertion of Endotracheal Airway into Trachea, Via Natural or Artificial Opening (ICD-10-PCS; 2016-08-25)
DX: J90 Pleural effusion, not elsewhere classified (principal); N18.6 End stage renal disease; E43 Unspecified severe protein-calorie malnutrition; J96.00 Acute respiratory failure, unspecified whether with hypoxia or hypercapnia; J44.1 Chronic obstructive pulmonary disease with (acute) exacerbation; N39.0 Urinary tract infection, site not specified; I13.2 Hypertensive heart and chronic kidney disease with heart failure and with stage 5 chronic kidney disease, or end stage renal disease; R57.9 Shock, unspecified; I50.32 Chronic diastolic (congestive) heart failure; E11.22 Type 2 diabetes mellitus with diabetic chronic kidney disease; E87.5 Hyperkalemia; D50.9 Iron deficiency anemia, unspecified; K31.7 Polyp of stomach and duodenum; J45.909 Unspecified asthma, uncomplicated; F32.9 Major depressive disorder, single episode, unspecified; E11.319 Type 2 diabetes mellitus with unspecified diabetic retinopathy without macular edema; K21.9 Gastro-esophageal reflux disease without esophagitis; E83.51 Hypocalcemia; E11.21 Type 2 diabetes mellitus with diabetic nephropathy; E11.40 Type 2 diabetes mellitus with diabetic neuropathy, unspecified; R19.7 Diarrhea, unspecified; K59.00 Constipation, unspecified; E78.5 Hyperlipidemia, unspecified; H54.0 Blindness, both eyes; I46.9 Cardiac arrest, cause unspecified; I48.0 Paroxysmal atrial fibrillation; D63.1 Anemia in chronic kidney disease; I95.3 Hypotension of hemodialysis; Z88.8 Allergy status to other drugs, medicaments and biological substances; Z88.6 Allergy status to analgesic agent; Z91.013 Allergy to seafood; Z79.4 Long term (current) use of insulin; Z79.82 Long term (current) use of aspirin; Z79.899 Other long term (current) drug therapy; Z99.2 Dependence on renal dialysis; Z90.49 Acquired absence of other specified parts of digestive tract; Z98.890 Other specified postprocedural states; Z68.27 Body mass index [BMI] 27.0-27.9, adult
CPT/HCPCS: 32555; 76700; 76942; 82306; 82465; 82805; 82945; 82962; 83036; 83605; 83615; 83735; 83986; 84100; 84132; 84157; 84443; 85007; 85362; 85379; 85384; 87015; 87040; 87070; 87081; 87086; 87101; 87205; 87252; 87340; 88108; 88305; 88312; 88342; 89051; 92950; 93005; 93306; 94002; 94640; 96365; 96375; 99285; J0171; J0282; J0461; J0696; J0885; J1170; J1265; J1644; J2150; J2370; J2405; J2543; J2550; J2704; J2920; J2930; J3010; J3370; J3490; J7030; J7040; J7050; J7060